=== PATIENT | female | born 1995 | race Caucasian/White ===

== ENCOUNTER 2016-11-27 01:36 | Emergency (ER) | payer MEDICAID ==
[2016-11-27] MEDS ORDERED: SODIUM CHLORIDE 0.9% 1,000 ML ONE (02:21)
[2016-11-27] MEDS ORDERED: KETOROLAC 30 MG/ML VIAL ONE (03:11)
[2016-11-27] MEDS ORDERED: DIPHENHYDRAMINE 50 MG/ML VIAL ONE (03:11)
== END 2016-11-27 04:47 | disposition home or self-care (01) ==
LOC: ER 01:36
DX: G43.901 Migraine, unspecified, not intractable, with status migrainosus (principal)
CPT/HCPCS: 36415; 84703; 96361; 96374